=== PATIENT | female | born 1965 | race Caucasian/White ===

== ENCOUNTER 2020-04-10 11:27 | Day surgery (SDC) | payer BC ==
[2020-04-03 16:00] LABS: BASOPHILS % (AUTO) 0.5 % (0-1); EOSINOPHILS # (AUTO) 0.2 X10'3 (0-0.9); EOSINOPHILS % (AUTO) 2.1 % (0-6); LYMPHOCYTES # (AUTO) 2.5 X10'3 (1.1-4.8); LYMPHOCYTES % (AUTO) 32.6 % (21-51); MEAN CORPUSCULAR HEMOGLOBIN 31.1 PG (27.0-31.0); MEAN CORPUSCULAR HGB CONC 33.5 g/dL (33.0-36.5); MEAN PLATELET VOLUME 8.4 FL (7.4-10.4); MONOCYTES # (AUTO) 0.6 X10'3 (0-0.9); MONOCYTES % (AUTO) 7.4 % (2-12); NEUTROPHILS # (AUTO) 4.4 X10'3 (1.8-7.7); NEUTROPHILS % (AUTO) 57.4 % (42-75); PRE OP HEMATOCRIT 45.2 % (35.0-45.0); PRE OP HEMOGLOBIN 15.1 g/dL (12.0-16.0); PRE OP PLATELET COUNT 288 X10'3 (140-440); RED BLOOD COUNT 4.86 X10'6 (4.20-5.60)
[2020-04-03 16:08] LABS: HCG SERUM QL NEGATIVE
[2020-04-03 16:12] LABS: ALBUMIN 3.8 G/DL (3.4-5.0); ALKALINE PHOSPHATASE 73 IU/L (46-116); BLOOD UREA NITROGEN 14 MG/DL (7-18); BUN/CREATININE RATIO 20.3 (6.6-38.0); CALCIUM 9.2 MG/DL (8.5-10.1); CHLORIDE 104 MMOL/L (99-107); CREATININE 0.69 MG/DL (0.40-0.90); PRE OP ALT 24 U/L (30-65); PRE OP ANION GAP 6 (8-16); PRE OP AST 21 U/L (10-37); PRE OP BILIRUB, TOTAL 0.2 MG/DL (0.0-1.0); PRE OP GLUCOSE 92 MG/DL (70-104); PRE OP POTASSIUM 3.9 MMOL/L (3.4-5.1); PRE OP SODIUM 140 MMOL/L (135-145); TOTAL CARBON DIOXIDE 30.1 MMOL/L (24-32); TOTAL PROTEIN 7.5 G/DL (6.4-8.2); eGFR 88 ML/MIN
[2020-04-03 16:17] LABS: CLARITY,URINE CLEAR (Clear); COLOR,URINE YELLOW (Yellow); GLUCOSE, URINE NEGATIVE (Neg); KETONES,URINE NEGATIVE (Neg); LEUKOCYTE ESTERASE ,URINE NEGATIVE (Neg); NITRITES, URINE NEGATIVE (Neg); OCCULT BLOOD,URINE NEGATIVE (Neg); PROTEIN,URINE NEGATIVE (Neg); UROBILINOGEN,URINE 0.2 E.U/dL (0.2-1.0)
[2020-04-03 16:19] LABS: UA COLLECTION TYPE CLN CATCH MIDSTREAM
[2020-04-10] VITALS (7 sets, daily range): BP systolic 99–116; BP diastolic 59–76
[~2020-04-10] VITALS: Ht 167.6 cm; Wt 82.0 kg
[~2020-04-10 11:27] MED LIST: MESA500C PO; clindamycin-Cleocin 900mg/D5W 50 ML IV ONE; famotidine 20mg tablet PO ONE; gentamicin inj 410 MG in normal saline 100ml IV soln 89.75 ML IV ONE; ringers solution, lacted 1,000 ML IV SCH
[2020-04-10] MEDS ORDERED: ringers solution, lacted 1,000 ML IV SCH (14:08)
[2020-04-10] MEDS ORDERED: hydrALAZINE 20mg/ml inj. IV PRN (14:10)
[2020-04-10] MEDS ORDERED: morphine 2 MG/ML inj. syringe IV PRN (14:10)
[2020-04-10] MEDS ORDERED: morphine 4 MG/ML inj SYRINge IV PRN (14:10)
[2020-04-10] MEDS ORDERED: ondansetron/PF 4mg/2ml inj IV PRN (14:10)
[2020-04-10] MEDS ORDERED: labetalol 20mg/4ml (5mg/ml) syringe IV PRN (14:10)
[2020-04-10] MEDS ORDERED: fentaNYL/PF 50MCG/1 ML 2ML syringe IV PRN ×2 (14:10)
[2020-04-10] MEDS ORDERED: fentaNYL/PF 50MCG/1 ML 2ML syringe ONE (14:11)
[2020-04-10] MEDS ORDERED: midazolam 2 mg/2 ml injection ONE (14:11)
[2020-04-10] MEDS ORDERED: LIDOcaine 2% (20mg/ml) 5ml vial ONE (14:12)
[2020-04-10] MEDS ORDERED: propofol inj 20 ML IV ONE (14:12)
[2020-04-10] MEDS ORDERED: ketorolac trometh. 30mg/ml inj. ONE ×2 (14:12→14:56)
[2020-04-10] MEDS ORDERED: ondansetron/PF 4mg/2ml inj ONE (14:12)
[2020-04-10] MEDS ORDERED: dexamethasone sod phosphate 4mg/ml inj. ONE (14:12)
[2020-04-10] MEDS ORDERED: sevoflurane 250ml liquid IH ONE (14:56)
[2020-04-10] MEDS ORDERED: vasoPRESSIN 20 units/ml inj. ONE (15:28)
--- NOTE | 2020-04-10 15:49 | NUR ---
Received from OR via , accompanied by Anesthesiologist DR CRUZ and report given by Anesthesiolgist. AWAKENS TO VOICE. VITALS STABLE. DRESSING DI. DEONTE PAIN.
--- NOTE | 2020-04-10 16:49 | NUR ---
AWAKE AND ORIENTED. VITALS STABLE. DRESSING DI. DEONTE PAIN. HOME WITH HER SPOUSE AT THIS TIME.
== END 2020-04-10 16:49 | disposition home or self-care (01) ==
LOC: PAS 11:27
PROVIDERS: ATTEND Obstetrics & Gynecology Obstetrics
DX: N93.9 Abnormal uterine and vaginal bleeding, unspecified (principal); N84.0 Polyp of corpus uteri; D06.9 Carcinoma in situ of cervix, unspecified; F12.90 Cannabis use, unspecified, uncomplicated; F41.9 Anxiety disorder, unspecified; K50.90 Crohn's disease, unspecified, without complications; D64.9 Anemia, unspecified; M19.90 Unspecified osteoarthritis, unspecified site; F32.9 Major depressive disorder, single episode, unspecified; Z88.0 Allergy status to penicillin; Z90.721 Acquired absence of ovaries, unilateral; Z98.890 Other specified postprocedural states; Z79.899 Other long term (current) drug therapy; Z72.89 Other problems related to lifestyle; Z11.59 Encounter for screening for other viral diseases; Z82.49 Family history of ischemic heart disease and other diseases of the circulatory system; Z84.1 Family history of disorders of kidney and ureter
CPT/HCPCS: 36415; 57520; 58558; 71046; 80053; 81003; 82948; 84703; 85025; 86885; 86900; 86901; 87635; 93005; J1100; J1580; J1885; J2001; J2250; J2405; J2704; J3010; J7030; 86920; A4355; A4618; A6258; A7000; J3490; J7120